=== PATIENT | male | born 1985 | race Caucasian/White ===

== ENCOUNTER 2023-10-03 11:58 | Emergency (ER) | payer BC ==
[~2023-10-03] VITALS: Ht 182.9 cm; Wt 117.9 kg
[2023-10-03 12:23] VITALS: BP 135/85; PULSE 76; RESP 18; TEMP 98.3; O2SAT 99
[2023-10-03] MEDS ORDERED: ONDA8TAB87 PO (13:50)
== END 2023-10-03 13:53 | disposition home or self-care (01) ==
LOC: MED 11:58
DX: R11.0 Nausea (principal); K59.00 Constipation, unspecified; R14.0 Abdominal distension (gaseous)
CPT/HCPCS: 99283